=== PATIENT | female | born 1995 | race Caucasian/White ===

== ENCOUNTER 2017-10-15 11:47 | Emergency (ER) | END 2017-10-15 15:14 | disposition home or self-care (01) ==

== ENCOUNTER 2017-10-24 11:04 | Emergency (ER) | payer MEDICAID ==
[~2017-10-24] VITALS: Ht 165.1 cm; Wt 67.8 kg
[~2017-10-24 11:04] MED LIST: AZIT250T94 PO; IBUP-1542 PO; IBUP100T6; ONDA8TAB14 PO
[2017-10-24 11:06] VITALS: Ht 165.1 cm; Wt 67.8 kg
[2017-10-24] MEDS ORDERED: SODI126M NASAL (13:26)
[2017-10-24 14:04] LABS: URINE BLOOD (Dip) POC Negative (NEGATIVE)
[2017-10-24] MEDS ORDERED: LORA10CA PO (14:35)
--- NOTE | 2017-10-24 14:47 | ERD ---
ER Documentation Chief Complaint Chief Complaint diarrhea x 3 days, anxious HPI 22-year-old female is complaining of abdominal pain and diarrhea 3 days. Abdominal pain is located on the left side, comes and goes. She has nausea but no vomiting. She was seen here 9 days ago for sinusitis. Patient was given prescription of azithromycin. Patient stated that she finished the antibiotics , and diarrhea started right after that. Patient stated that she had nasal congestion for quite some time now. She felt like she cannot breathe when she is lying down at night. She has been taking Flonase for the last week. Denies fever or chills. Denies dysuria. ROS All systems reviewed and are negative except as per history of present illness. Medications Home Meds Active Scripts Loratadine* (Claritin*) 10 Mg Capsule, 10 MG PO DAILY, #30 CAP Prov:JEFFERY RAMIREZ NP 10/24/17 Sodium Chloride (Saline Nasal Mist) 126 Ml Mist, 2 SPRAY NASAL Q2H Y for NASAL CONGESTION, #1 BOTTLE Prov:JEFFERY RAMIREZ NP 10/24/17 Azithromycin* (Zithromax*) 250 Mg Tablet, 250 MG PO .ZPACK DIRECTED, #6 TAB TAKE 500 MG (2 TABS) THE FIRST DAY THEN 250 MG (1 TAB) DAYS 2-5 Prov:SEDRICK BADILLO MD 10/15/17 Ibuprofen* (Motrin*) 600 Mg Tab, 600 MG PO Q6, #15 TAB Prov:SEDRICK BADILLO MD 10/15/17 Ondansetron (Ondansetron Odt) 8 Mg Tab.rapdis, 8 MG PO Q6H Y for NAUSEA AND/OR VOMITING, #6 TAB Prov:SEDRICK BADILLO MD 10/15/17 Reported Medications Ibuprofen (Advil) 100 Mg Tab.chew 12/24/12 Allergies Allergies: Coded Allergies: No Known Allergy (Unverified , 12/24/12) PMhx/Soc History of Surgery: No Anesthesia Reaction: No Hx Neurological Disorder: No Hx Respiratory Disorders: No Hx Cardiac Disorders: No Hx Psychiatric Problems: No Hx Miscellaneous Medical Probl: No Hx Alcohol Use: No Hx Substance Use: No Hx Tobacco Use: No Physical Exam Vitals Vital Signs Date Time Temp Pulse Resp B/P Pulse Ox O2 Delivery O2 Flow Rate FiO2 10/24/17 11:06 98.3 95 18 146/84 99 Physical Exam General: Well-developed, well-nourished, conscious and coherent, in no distress Skin: Warm and dry without rash, good texture and turgor Head: Normocephalic without evidence of trauma Eyes: Sclera and conjunctivae normal; pupils equal, round, and reactive to light; extraocular movements are intact Nose/Face: Nasal mucosa erythematous and swollen. Mouth/throat: Mucous membranes are moist. Posterior pharynx clear without erythema or exudates Neck: Supple without meningismus or adenopathy. Carotids are equal. Trachea midline. No bruits or JVD Chest: Normal AP diameter. Good expansion without retractions. Nontender. Lungs are clear to auscultate bilaterally with good tidal volume Heart: Regular rate and rhythm. No murmur, rub, or gallops heard Abdomen: Soft, mild left lower quadrant tenderness without masses, guarding, or rebound. Bowel sounds are active. No hepatosplenomegaly Back: Without spinal or CVA tenderness Pelvis: Nontender to palpation and stable to compression Extremities: Full range of motion. Good strength bilaterally. No clubbing, cyanosis, or edema. Peripheral pulses are intact. Sensation intact Neuro: Alert and oriented 4, GCS 15. Cranial nerves grossly intact. Motor and sensory exams nonfocal. Moves all extremities. Speech clear. Gait normal Results 24 hrs Laboratory Tests Test 10/24/17 14:04 Bedside Urine pH (LAB) 7.0 Bedside Urine Protein (LAB) Negative Bedside Urine Glucose (UA) Negative Bedside Urine Ketones (LAB) Negative Bedside Urine Blood Negative Bedside Urine Nitrite (LAB) Negative Bedside Urine Leukocyte Esterase (L Negative Procedures/MDM Well-appearing 22-year-old female presented ED with diarrhea 3 days, onset shortly after finishing the antibiotics. I suspect that he is to her diarrhea is secondary to antibiotic use. Although I cannot completely rule out viral illness. Patient is has no sign of dehydration, able to maintain p.o. intake. UA is negative. I doubt UTI. Urine negative. I doubt ectopic . Patient also complains of nasal congestion. She has been taking Flonase for 1 week. I informed her that continued Flonase use should help relieve her congestion. I will also prescribe saline nasal spray and Claritin to help reduce her nasal congestion. Patient's O2 sat is 99%, she has no sign of respiratory distress. Patient appears well, stable for discharge and outpatient management. Medical decision making shared with patient and family. Education provided to patient and family. Patient and family expressed understanding of the plan. Medications on discharge: Saline nasal spray, Claritin. Follow-up: Primary care provider in 2-3 days or return to ED if worse. Disclaimer: Inadvertent spelling and grammatical errors are likely due to EHR/ dictation software use and do not reflect on the overall quality of patient care. Also, please note that the electronic time recorded on this note does not necessarily reflect the actual time of the patient encounter. Departure Diagnosis: Primary Impression: Diarrhea Diarrhea type: unspecified type Qualified Code: R19.7 - Diarrhea, unspecified type Additional Impression: Nasal congestion Condition: Stable Patient Instructions: Treating Diarrhea, Causes of Nasal Allergies Referrals: [facility] YOU HAVE RECEIVED A MEDICAL SCREENING EXAM AND THE RESULTS INDICATE THAT YOU DO NOT HAVE A CONDITION THAT REQUIRES URGENT TREATMENT IN THE EMERGENCY DEPARTMENT. FURTHER EVALUATION AND TREATMENT OF YOUR CONDITION CAN WAIT UNTIL YOU ARE SEEN IN YOUR DOCTORS OFFICE WITHIN THE NEXT 1-2 DAYS. IT IS YOUR RESPONSIBILITY TO MAKE AN APPOINTMENT FOR FOLOW-UP CARE. IF YOU HAVE A PRIMARY DOCTOR --you should call your primary doctor and schedule an appointment IF YOU DO NOT HAVE A PRIMARY DOCTOR YOU CAN CALL OUR PHYSICIAN REFERRAL HOTLINE AT IF YOU CAN NOT AFFORD TO SEE A PHYSICIAN YOU CAN CHOSE FROM THE FOLLOWING [facility] [id number] [facility]. [facility] [address] [facility]. [facility] [address] [facility] [facility] [address] [facility] [address] [facility] [facility]. [address] Additional Instructions: Call your primary care doctor TOMORROW for an appointment during the next 2-3 days.See the doctor sooner or return here if your condition worsens before your appointment time. JEFFERY RAMIREZ NP Oct 24, 2017 14:47
== END 2017-10-24 15:31 | disposition home or self-care (01) ==
LOC: FTE 11:04
DX: R19.7 Diarrhea, unspecified (principal); R09.81 Nasal congestion
CPT/HCPCS: 81003; Z7502; 99283

== ENCOUNTER 2018-11-19 14:14 | Emergency (ER) | payer MEDICAID, OTHER ==
[~2018-11-19] VITALS: Wt 78.0 kg
[~2018-11-19 14:14] MED LIST changes: +AZIT250T PO; -AZIT250T94 PO; +LORA10CA PO; +SODI126M NASAL
[2018-11-19 14:17] VITALS: BP 139/89; PULSE 87; RESP 18
[2018-11-19] MEDS ORDERED: SOD CHLORIDE 0.9% 1,000 ML IV STA (15:13)
[2018-11-19] MEDS ORDERED: ONDANSETRON 4 MG INJ IV STA (15:13)
[2018-11-19] MEDS ORDERED: ONDA8TAB14 PO (16:40)
--- NOTE | 2018-11-19 16:42 | ERD ---
ER Documentation Chief Complaint Chief Complaint VOMITING AFTER HEAVY DERINKING LAST NIGHT HPI 23-year-old female presents with vomiting since early this morning. She admits to heavy alcohol use last night. She denies any blood, bilious vomiting. Denies any fevers, lower abdominal pain. She denies . She denies any history of seizures. Complains of mild epigastric pain as well. ROS All systems reviewed and are negative except as per history of present illness. Medications Home Meds Active Scripts Ondansetron (Ondansetron Odt) 8 Mg Tab.rapdis, 8 MG PO Q6H PRN for NAUSEA AND/OR VOMITING, #10 TAB Prov:SEDRICK BADILLO MD 11/19/18 Loratadine* (Claritin*) 10 Mg Capsule, 10 MG PO DAILY, #30 CAP Prov:JEFFERY RAMIREZ NP 10/24/17 Sodium Chloride (Saline Nasal Mist) 126 Ml Mist, 2 SPRAY NASAL Q2H PRN for NASAL CONGESTION, #1 BOTTLE Prov:JEFFERY RAMIREZ NP 10/24/17 Azithromycin* (Zithromax*) 250 Mg Tablet, 250 MG PO .ZPACK DIRECTED, #6 TAB TAKE 500 MG (2 TABS) THE FIRST DAY THEN 250 MG (1 TAB) DAYS 2-5 Prov:SEDRICK BADILLO MD 10/15/17 Ibuprofen* (Motrin*) 600 Mg Tab, 600 MG PO Q6, #15 TAB Prov:SEDRICK BADILLO MD 10/15/17 Ondansetron (Ondansetron Odt) 8 Mg Tab.rapdis, 8 MG PO Q6H PRN for NAUSEA AND/OR VOMITING, #6 TAB Prov:SEDRICK BADILLO MD 10/15/17 Reported Medications Ibuprofen (Advil) 100 Mg Tab.chew 12/24/12 Allergies Allergies: Coded Allergies: No Known Allergy (Unverified , 12/24/12) PMhx/Soc Medical and Surgical Hx: pt denies Medical Hx, pt denies Surgical Hx History of Surgery: No Anesthesia Reaction: No Hx Neurological Disorder: No Hx Respiratory Disorders: No Hx Cardiac Disorders: No Hx Psychiatric Problems: No Hx Miscellaneous Medical Probl: No Hx Alcohol Use: No Hx Substance Use: No Hx Tobacco Use: No Smoking Status: Never smoker FmHx Family History: No diabetes, No coronary disease, No other Physical Exam Vitals Vital Signs Date Temp Pulse Resp B/P (MAP) Pulse Ox O2 O2 Flow FiO2 Time Delivery Rate 11/19/18 98.1 87 18 139/89 99 14:17 (106) Physical Exam Const: No acute distress Head: Atraumatic Eyes: Normal Conjunctiva ENT: Normal External Ears, Nose and Mouth. Neck: Full range of motion. No meningismus. Resp: Clear to auscultation bilaterally Cardio: Regular rate and rhythm, no murmurs Abd: Soft, minimal epigastric tenderness. No tenderness McBurney's point no Mendoza sign. Non distended. Normal bowel sounds Skin: No petechiae or rashes Back: No midline or flank tenderness Ext: No cyanosis, or edema Neur: Awake and alert Psych: Normal Mood and Affect Result Diagram: 11/19/18 1530 11/19/18 1530 Results 24 hrs Laboratory Tests Test 11/19/18 15:30 White Blood Count 11.7 10^3/ul Red Blood Count 4.39 10^6/ul Hemoglobin 12.2 g/dl Hematocrit 38.1 % Mean Corpuscular Volume 86.8 fl Mean Corpuscular Hemoglobin 27.8 pg Mean Corpuscular Hemoglobin Concent 32.0 g/dl Red Cell Distribution Width 13.7 % Platelet Count 328 10^3/UL Mean Platelet Volume 10.8 fl Immature Granulocytes % 0.400 % Neutrophils % % Segmented Neutrophils % (Manual) 93 % Lymphocytes % % Lymphocytes % (Manual) 4 % Monocytes % % Monocytes % (Manual) 3 % Eosinophils % % Basophils % % Nucleated Red Blood Cells % 0.0 /100WBC Immature Granulocytes # 0.050 10^3/ul Neutrophils # 10^3/ul Lymphocytes (Manual) 0.4 10^3/ul Lymphocytes # 10^3/ul Monocytes # 10^3/ul Monocytes # (Manual) 0.3 10^3/ul Eosinophils # 10^3/ul Basophils # 10^3/ul Nucleated Red Blood Cells # 10^3/ul Platelet Estimate NORMAL Anisocytosis 2+ Microcytosis 2+ Urine Color YELLOW Urine Clarity CLOUDY Urine pH 7.0 Urine Specific [place] 1.029 Urine Ketones TRACE mg/dL Urine Nitrite NEGATIVE mg/dL Urine Bilirubin NEGATIVE mg/dL Urine Urobilinogen NEGATIVE mg/dL Urine Leukocyte Esterase NEGATIVE Mookie/ul Urine Microscopic RBC 134 /HPF Urine Microscopic WBC 0 /HPF Urine Squamous Epithelial Cells MANY /HPF Urine Mucus FEW /HPF Urine Hemoglobin 2+ mg/dL Urine Glucose NEGATIVE mg/dL Urine Total Protein 1+ mg/dl Sodium Level 144 mmol/L Potassium Level 3.7 mmol/L Chloride Level 106 mmol/L Carbon Dioxide Level 23 mmol/L Anion Gap 15 Blood Urea Nitrogen 10 mg/dl Creatinine 0.63 mg/dl Est Glomerular Filtrat Rate mL/min > 60 mL/min Glucose Level 96 mg/dl Calcium Level 9.6 mg/dl Total Bilirubin 0.4 mg/dl Direct Bilirubin 0.00 mg/dl Indirect Bilirubin 0.4 mg/dl Aspartate Amino Transf (AST/SGOT) 27 IU/L Alanine Aminotransferase (ALT/SGPT) 16 IU/L Alkaline Phosphatase 69 IU/L Total Protein 8.5 g/dl Albumin 4.8 g/dl Globulin 3.70 g/dl Albumin/Globulin Ratio 1.29 Lipase 65 U/L POC Beta HCG, Qualitative NEGATIVE Current Medications Medications Dose Sig/Tacho Start Time Status Last (Trade) Ordered Route PRN Stop Time Admin Dose Reason Admin Sodium 1,000 ml @ Q1H STAT 11/19/18 DC 11/19/18 Chloride 1,000 mls/hr IV 15:13 15:37 11/19/18 16:12 Ondansetron 4 mg ONCE STAT 11/19/18 DC 11/19/18 HCl (Zofran IV 15:13 15:37 Inj) 11/19/18 15:14 Procedures/MDM Patient presents with signs and symptoms of acute alcohol withdrawal or intoxication. She has a benign abdomen. She is given Zofran 4 mill grams IV, 1 L normal saline IV. There is minimal leukocytosis, possibly stress response given additional normal findings. CMP and lipase showed no significant acute abnormalities. Urine shows hemoglobin without findings of infection or additional abnormalities. HCG is negative. Patient felt much better after observation treatment. Patient will be discharged home with recommendations for alcohol abstinence, Zofran, clear fluids, bland diet, return precautions for vomiting despite treatment, abdominal pain, fevers, new or worsening symptoms. The patient was stable with no new complaints during the ER course. Clinically, there is no current evidence to suggest meningitis, sepsis, acute abdomen, pneumonia, stroke, acute coronary syndrome, pulmonary embolism, aortic dissection or any other emergent condition appearing to require further evaluation or hospitalization. Patient counseled regarding my diagnostic impression and care plan. Prior to discharge all questions answered. Pt agrees with treatment plan and understands strict return precautions. Pt is instructed to follow up with primary care provider within 24-48 hours. Precautionary instructions provided including instructions to return to the ER if not improving or for any worsening or changing symptoms or concerns. Departure Diagnosis: Primary Impression: Vomiting Vomiting type: unspecified Vomiting Intractability: unspecified Nausea presence: unspecified Qualified Codes: R11.10 - Vomiting, unspecified Condition: Stable Patient Instructions: Alcohol Overdose, Vomiting (6Y-Adult) Additional Instructions: Drink plenty of fluids at home. Avoid alcohol use. Recheck for vomiting despite treatment, fevers, worsening pain, new or worsening symptoms. SEDRICK BADILLO MD Nov 19, 2018 16:42
== END 2018-11-19 16:51 | disposition home or self-care (01) ==
LOC: FTE 14:14
DX: R11.10 Vomiting, unspecified (principal)
CPT/HCPCS: 80053; 81001; 81025; 83690; 85025; 96361; 96374; 99284; J2405; J7030

== ENCOUNTER 2019-01-28 18:14 | Emergency (ER) | payer SELFPAY ==
[~2019-01-28] VITALS: Ht 165.1 cm; Wt 74.4 kg
[2019-01-28 18:52] VITALS: BP 162/84; PULSE 100; RESP 20; Ht 165.1 cm; Wt 74.4 kg
== END 2019-01-28 23:30 | disposition left against medical advice (07) ==
LOC: E/R 18:14
DX: Z53.21 Procedure and treatment not carried out due to patient leaving prior to being seen by health care provider (principal)

== ENCOUNTER 2019-03-29 09:41 | Emergency (ER) | payer OTHER ==
[~2019-03-29] VITALS: Ht 162.6 cm; Wt 81.5 kg
[2019-03-29 10:19] VITALS: Ht 162.6 cm; Wt 81.5 kg
[2019-03-29] MEDS ORDERED: CALC625T68 PO (10:59)
[2019-03-29] MEDS ORDERED: ACET500C5 PO (10:59)
--- NOTE | 2019-03-29 11:08 | ERD ---
ER Documentation Chief Complaint Chief Complaint c/o abd pain with nausea, also c/o bright red colored stool HPI 24 female presents with complaint of bright red blood in stool and generalized abdominal pain since Wednesday. States that pain is generalized but is mostly in left side. States that she is no longer having any abdominal pain. Denies any fevers, chills, dysuria, flank pain, vomiting, diarrhea, hematuria. Has been taking ibuprofen. Denies allergies. Denies medical problems. ROS All systems reviewed and are negative except as per history of present illness. Medications Home Meds Active Scripts Acetaminophen* (Tylophen*) 500 Mg Capsule, 2 CAP PO Q8H PRN for PAIN AND OR ELEVATED TEMP, #20 CAP Prov:GABRIELA MANSFIELD 03/29/19 Calcium Polycarbophil* (Fibercon*) 625 Mg Tablet, 1250 MG PO DAILY for hemorrhoids, #30 TAB Prov:GABRIELA MANSFIELD 03/29/19 Ondansetron (Ondansetron Odt) 8 Mg Tab.rapdis, 8 MG PO Q6H PRN for NAUSEA AND/OR VOMITING, #10 TAB Prov:SEDRICK BADILLO MD 11/19/18 Loratadine* (Claritin*) 10 Mg Capsule, 10 MG PO DAILY, #30 CAP Prov:JEFFERY RAMIREZ NP 10/24/17 Sodium Chloride (Saline Nasal Mist) 126 Ml Mist, 2 SPRAY NASAL Q2H PRN for NASAL CONGESTION, #1 BOTTLE Prov:JEFFERY RAMIREZ. KIET 10/24/17 Azithromycin* (Zithromax*) 250 Mg Tablet, 250 MG PO .RANDOLPHCK DIRECTED, #6 TAB TAKE 500 MG (2 TABS) THE FIRST DAY THEN 250 MG (1 TAB) DAYS 2-5 Prov:SEDRICK BADILLO MD 10/15/17 Ibuprofen* (Motrin*) 600 Mg Tab, 600 MG PO Q6, #15 TAB Prov:SEDRICK BADILLO MD 10/15/17 Ondansetron (Ondansetron Odt) 8 Mg Tab.rapdis, 8 MG PO Q6H PRN for NAUSEA AND/OR VOMITING, #6 TAB Prov:SEDRICK BADILLO MD 10/15/17 Reported Medications Ibuprofen (Advil) 100 Mg Tab.chew 12/24/12 Allergies Allergies: Coded Allergies: No Known Allergy (Unverified , 12/24/12) PMhx/Soc History of Surgery: No Anesthesia Reaction: No Hx Neurological Disorder: No Hx Respiratory Disorders: No Hx Cardiac Disorders: No Hx Psychiatric Problems: No Hx Miscellaneous Medical Probl: No Hx Alcohol Use: No Hx Substance Use: No Hx Tobacco Use: No FmHx Family History: No diabetes, No coronary disease, No other Physical Exam Vitals Vital Signs Date Temp Pulse Resp B/P (MAP) Pulse Ox O2 O2 Flow FiO2 Time Delivery Rate 03/29/19 98.0 72 20 156/92 99 10:19 (113) Physical Exam Const: No acute distress Head: Atraumatic Eyes: Normal Conjunctiva ENT: Normal External Ears, Nose and Mouth. Neck: Full range of motion. No meningismus. Resp: Clear to auscultation bilaterally Cardio: Regular rate and rhythm, no murmurs Abd: Soft, non tender, non distended. Normal bowel sounds. No McBurney's tenderness. No left-sided tenderness. Skin: No petechiae or rashes Back: No midline or flank tenderness Ext: No cyanosis, or edema Neur: Awake and alert Psych: Normal Mood and Affect Rectal: Performed with wildland firefighter present. External hemorrhoids noted around the anus. Tenderness to palpation in the rectal area with no masses noted. Procedures/MDM MDM: Patient's presentation is concerning for hemorrhoids. Because of the patient complaint of bleeding and abdominal pain there was some concern for possible diverticulosis however patient's abdominal exam is normal, patient does not have fever, and there were hemorrhoids noted on the exam. In addition patient denies any current abdominal pain. Therefore I feel the risks of doing CT scan at this time outweigh the benefits. Patient was given strict return precautions to return in 24 hours for follow-up exam. In the meantime patient will be treated for hemorrhoids with FiberCon. This time of low suspicion for diverticulosis, diverticulitis, appendicitis, perirectal abscess, or any other emergent condition. Patient discharged with strict ER precautions. Patient advised to follow up with PMD. All questions answered at discharge. Departure Diagnosis: Primary Impression: Hemorrhoid Hemorrhoid type: unspecified Qualified Codes: K64.9 - Unspecified hemorrhoids Condition: Stable Patient Instructions: Treating Hemorrhoids: Self-Care, Understanding Hemorrhoid s, Hemorrhoids Additional Instructions: Follow-up in 24 hours for repeat exam. If your condition worsens before then return to ER immediately. GABRIELA MANSFIELD March 29, 2019 11:08
[2019-03-29 11:10] VITALS: BP 139/75; PULSE 69; RESP 20
== END 2019-03-29 11:28 | disposition home or self-care (01) ==
LOC: FTE 09:41
DX: K64.9 Unspecified hemorrhoids (principal)
CPT/HCPCS: 99284